=== PATIENT | female | born 1955 | race Caucasian/White ===

== ENCOUNTER 2017-10-18 17:51 | Emergency (ER) | payer OTHER ==
[~2017-10-18] VITALS: Ht 152.4 cm; Wt 78.0 kg
[2017-10-18 18:01] VITALS: Ht 152.4 cm; Wt 78.0 kg
[2017-10-18 22:38] VITALS: BP 142/93
== END 2017-10-18 22:38 | disposition home or self-care (01) ==
LOC: ED 17:51
DX: S00.03XA Contusion of scalp, initial encounter (principal); S70.02XA Contusion of left hip, initial encounter; S40.012A Contusion of left shoulder, initial encounter; W18.30XA Fall on same level, unspecified, initial encounter; Y93.89 Activity, other specified; Y99.8 Other external cause status; Y92.89 Other specified places as the place of occurrence of the external cause

== ENCOUNTER 2020-10-16 15:55 | Emergency (ER) | payer OTHER ==
[~2020-10-16] VITALS: Ht 165.1 cm; Wt 72.6 kg
[2020-10-16 15:57] VITALS: BP 125/75; Ht 165.1 cm; Wt 72.6 kg
== END 2020-10-16 16:40 | disposition home or self-care (01) ==
LOC: ED 15:55
DX: U07.1 COVID-19 (principal); B34.9 Viral infection, unspecified; Z90.710 Acquired absence of both cervix and uterus
CPT/HCPCS: U0003